=== PATIENT | male | born 1960 | race Two or more races ===

== ENCOUNTER → 2023-12-16 | Outpatient (CLI) | payer BC, SELFPAY ==
[2023-12-16 10:27] LABS: Glucose Estimated Average 280 mg/dL (80-131); Hemoglobin A1C 11.4 % Hgb (4.8-6.0)
== END | disposition home or self-care (01) ==
PROVIDERS: PCP Nurse Practitioner Family; Referring Provider Nurse Practitioner Family; Visit Provider Nurse Practitioner Family
DX: E11.9 Type 2 diabetes mellitus without complications (principal)
CPT/HCPCS: 36415; 83036

== ENCOUNTER → 2024-02-27 | Outpatient (CLI) | payer BC, SELFPAY ==
[2024-02-27 09:07] LABS: Basophils # (Auto) 0.1 Thou/mm3 (0.0-0.2); Basophils % (Auto) 1 % (0-2.5); Eosinophils # (Auto) 0.2 Thou/mm3 (0.0-0.5); Eosinophils % (Auto) 2 % (0-10); Hematocrit 51.8 % (41.0-53.0); Hemoglobin 17.9 g/dL (13.5-16.0); Immature Granulocytes % (Auto) 0 % (0-0); Immature Granulocytes Auto 0.02 Thou/mm3 (0.00-0.00); Lymphocytes # (Auto) 2.6 Thou/mm3 (1.0-4.8); Lymphocytes % (Auto) 35 % (10-50); Mean Corpuscular HGB Conc 34.6 g/dl (31.0-37.0); Mean Corpuscular Volume 90 fL (80-100); Monocytes # (Auto) 0.7 Thou/mm3 (0.0-0.8); Monocytes % (Auto) 9 % (0-12); Neutrophils % (Auto) 53 % (37-80); Nucleated Red Blood Cell % 0 /100 WBC (0); Platelet Count 188 Thou/mm3 (140-440); RDW Standard Deviation 42.5 fL (35.1-43.9); Red Blood Count 5.77 Miln/mm3 (4.50-5.90); White Blood Count 7.6 Thou/mm3 (3.8-10.6)
[2024-02-27 09:19] LABS: Alanine Aminotransferase 28 U/L (10-49); Albumin, Serum 4.4 gm/dL (3.4-4.8); Albumin/Globulin Ratio 1.4 (1.2-2.2); Alkaline Phosphatase 59 U/L (46-116); Anion Gap 7 (7-16); Aspartate Amino Transferase 20 U/L (0-34); BUN/Creatinine Ratio 13 Ratio (12-20); Bilirubin,Total 0.6 mg/dL (0.3-1.2); Blood Urea Nitrogen 13 mg/dL (9-23); Calcium 9.2 mg/dL (8.3-10.6); Calcium (Corrected) 9.2 mg/dL (8.5-10.1); Carbon Dioxide 27.5 mMol/L (20.0-31.0); Chloride 103 mMol/L (98-107); Globulin 3.1 gm/dL (2.3-3.5); Glucose 219 mg/dL (74-106); Osmolality,Calculated 280 (275-295); Potassium 4.3 mMol/L (3.4-5.1); Sodium 137 mMol/L (136-145); Total Protein 7.5 gm/dL (5.7-8.2); eGFR > 60 See Note
[2024-02-27 09:24] LABS: INR 1.1 (0.9-1.3); Partial Thromboplastin Time 26.8 Seconds (22.0-36.0); Prothrombin Time 11.6 Seconds (9.0-12.2)
== END | disposition home or self-care (01) ==
LOC: COPL 08:19
PROVIDERS: PCP Nurse Practitioner Family; Referring Provider Student in an Organized Health Care Education/Training Program; Visit Provider Student in an Organized Health Care Education/Training Program
DX: Z01.818 Encounter for other preprocedural examination (principal); H33.001 Unspecified retinal detachment with retinal break, right eye
CPT/HCPCS: 36415; 80053; 85025; 85610; 85730

== ENCOUNTER → 2024-03-15 | Outpatient (CLI) | payer BC, SELFPAY ==
[2024-03-15 10:46] LABS: Glucose Estimated Average 275 mg/dL (80-131); Hemoglobin A1C 11.2 % Hgb (4.8-6.0)
== END | disposition home or self-care (01) ==
LOC: COPL 09:00
PROVIDERS: PCP Nurse Practitioner Family; Referring Provider Nurse Practitioner Family; Visit Provider Nurse Practitioner Family
DX: E11.9 Type 2 diabetes mellitus without complications (principal)
CPT/HCPCS: 36415; 83036

== ENCOUNTER → 2024-06-17 | Outpatient (CLI) | payer BC, SELFPAY ==
[2024-06-17 08:58] LABS: Glucose Estimated Average 197 mg/dL (80-131); Hemoglobin A1C 8.5 % Hgb (4.8-6.0)
== END | disposition home or self-care (01) ==
LOC: COPL 08:08
PROVIDERS: PCP Nurse Practitioner Family; Referring Provider Nurse Practitioner Family; Visit Provider Nurse Practitioner Family
DX: E03.9 Hypothyroidism, unspecified (principal)
CPT/HCPCS: 36415; 83036

== ENCOUNTER 2024-08-07 07:35 | Emergency (ER) | payer BC, SELFPAY ==
[2024-08-07] VITALS (9 sets, daily range): BP systolic 151–184; BP diastolic 92–102; PULSE 60–85; RESP 16–20; O2SAT 96–99; BMI 34.2
--- NOTE | 2024-08-07 07:50 | PC.NURSE ---
PATIENT ARRIVED ED VIA PRIVATE VEHICLE. PER FAMILY PATIENT WAS UP AT 0500 AND WENT FOR A WALK, DURING THE WALK PATIENT BECAME CONFUSED AND STATES HE HAD TINGLING TO HIS HANDS. UPON ARRIVAL TO ED PATIENT ALERT AND ORIENTED ABLE TO ANSWER QUESTIONS APPROPRIATELY. DR. MARISCAL IN TRIAGE TO ASSESS PATIENT FOR STROKE. STROKE ALERT CALLED AT 0753. PATIENT BS, VITALS OBTAINED. PATIENT TRANSPORTED VIA GURNEY AND TELENEUROLOGY CART. PATIENT ABLE TO FOLLOW COMMANDS DURING EVALUATION BY TELENEUROLOGIST. PATIENT TRNASPORTED BACK TO ROOM AND ASSESSMENT COMPLETED. FAMILY AT BEDSIDE. WILL CONTINUE TO MONITOR.
--- NOTE | 2024-08-07 07:59 | EKG_ITS ---
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
--- NOTE | 2024-08-07 07:59 | XR_ITS ---
Examination: CT brain head without contrast. 2-D sagittal coronal reconstructions Date and time of exam:July 30, 2024 0805 hours INDICATIONS: , Stroke alert Onset focal neurologic deficit this morning. CTDI: vol (mGy):50.7 DLP: (mGycm):1019 Technique: Multiple CT axial sections of the brain have been obtained, 5 mm slice thickness. Contrast has not been administered. 2-D sagittal, coronal reconstructions have been obtained Low dose protocols were performed. One or more of the following dose reduction techniques were used; automated exposure control, adjustment of the mA and/or KV according to patient size, use of iterative reconstruction technique. Findings: No significant ventricular enlargement. Old infarct right basal ganglia Intra-axial or extra-axial hemorrhage density is not seen. No mass effect or midline shift Basal cisterns are not remarkable. Fourth ventricle is midline. Cranial vault intact. Impression: Negative for acute hemorrhage, mass effect or midline shift
--- NOTE | 2024-08-07 07:59 | XR_ITS ---
Examination: CTA carotids with intravenous contrast CTA brain, head with intravenous contrast. 2-D sagittal, coronal reconstructions. 3-D reconstructions. Exam date and time: 25, 0819 hrs. Indications: Stroke alert, onset focal neurologic deficit today CTDI: vol (mGy) 15.5 DLP: (mGycm) 513 Technique: Multiple CTA axial brain, head carotid images post intravenous contrast injection 75 cc, Isovue-370. 2-D sagittal, coronal reconstructions. 3-D reconstructions, 3-D post processing including vascular maximum intensity projection images. Low dose protocols were performed. One or more of the following dose reduction techniques were used; automated exposure control, adjustment of the mA and/or KV according to patient size, use of iterative reconstruction technique. Findings: No significant right common carotid carotid bifurcation or internal carotid artery stenoses Moderate calcification left carotid bifurcation,, 50-60% stenosis origin left internal carotid artery No significant vertebral artery stenoses Intracranial vertebral arteries, basilar artery and posterior cerebral branches do fill Significant calcification juxtasellar portions of the internal carotid arteries No large vessel occlusions involving middle cerebral or anterior cerebral artery branches Impression: 50-60% stenosis origin left internal carotid artery No cerebral large vessel arterial occlusions or thrombus
--- NOTE | 2024-08-07 08:01 | XR_ITS ---
Examinations: MRI Brain without intravenous contrast. MRA brain without intravenous contrast. MRA carotids without intravenous contrast 3-D vascular reconstructions Date and time of exam: August 07, 2024, 1301 hrs. Indications: Stroke alert today, onset focal neurologic deficit Technique: Multiple axial and sagittal images of the brain have been obtained MRA brain carotid images without contrast obtained, including 3-D postprocessing, vascular maximum intensity projection images Findings: Sellaturcica is not enlarged. The optic chiasm and infundibular stalk are not remarkable. Prepontine and interpeduncular cisterns are not enlarged. No localized enlargement of the medulla or chilo. Fourth ventricle and cerebellar tonsils normal in position. Subacute hemorrhage is not seen. Fourth ventricle is midline. Mass in the cerebellopontine angle region is not evident. 7th and 8th nerve complexes exhibits symmetry. Globes are symmetrical with no retro-orbital mass. Increased white matter signal evident, old infarct right and left basal ganglia Diffusion-weighted images demonstrate no focus of restricted diffusion Mass-effect upon the ventricular system is not identified. MRA carotid images degraded by patient motion. MRA brain images diffuse cerebral irregularity without large vessel occlusions Impression: Negative for acute hemorrhage mass effect or midline shift No acute infarct Bilateral old basal ganglia infarcts Moderate diffuse cerebral arterial irregularity
--- NOTE | 2024-08-07 08:36 | PD.EDWEAK ---
ED Weakness RME/HPI General Chief complaint: Dizziness Stated complaint: AMS/DIZZY/WEAK/GOT LOST, LUZW AT 0500 Time Seen by Provider: 08/07/24 07:53 Arrival date/time: 08/07/24 07:35 Limitations: no limitations RME / HPI RME / HPI Narrative: 64 year old male with history of CVA 1 year ago per family, hypertension, diabetes presents to the ED brought in by for evaluation of confusion and altered mental status that began earlier today. Per , the patient usually walks every morning at 5:00 AM. However, this morning, instead of walking, the patient got into his car and drove. At approximately 6:30 AM, the received a call from the patient stating he was lost and unable to find his way home. State the patient has a life alert and were able to track him. states the patient was quiet a ways from home and was found confused. Additionally reports he was sweating at the time. While in the ED, the patient is slow to respond but is answering all questions appropriately. He complains of feeling tremulous, globally weak, and experiencing a headache and abdominal pain. No fevers or chills. Denies any recent changes in speech or any other new complaints. Patient reports he administered his insulin this morning but did not check sugar at home. later adds the patient does drink 1-2 beers daily or every other day. Denies patient drinking last night or this morning. Related Data Home Medications ?Medication ?Instructions ?Recorded ?Confirmed insulin glargine 100 unit/mL (3 unit subcut PRN 08/07/24 mL) subcutaneous pen (Lantus Solostar U-100 Insulin) metformin 500 mg tablet 500 mg PO BID 08/07/24 08/07/24 pioglitazone 30 mg tablet 30 mg PO BID 08/07/24 08/07/24 Previous Rx's ?Medication ?Instructions ?Recorded amlodipine 5 mg tablet 5 mg PO QDAY 30 days #30 tabs 08/07/24 losartan 25 mg tablet 25 mg PO QDAY #30 tabs 08/07/24 Allergies Allergy/AdvReac Type Severity Reaction Status Date / Time No Known Allergies Allergy Verified 08/07/24 07:44 Review of Systems Review of Systems Systems Reviewed: All systems reviewed, normal except as documented Past Medical History Past Medical History CARDIAC: Positive Hypertension; Negative Congestive Heart Failure RESPIRATORY: Negative Respiratory Disorders or Chronic Obstructive Pulmonary Disease (COPD) GENITOURINARY: Negative Renal Disease ENDOCRINE: Positive Diabetes Mellitus Type 2; Negative Diabetes Mellitus Type 1 Social History SMOKING STATUS: Never smoker ED Exam General Limitations: Present no limitations General appearance: Present alert and in no apparent distress Head Head exam: Present atraumatic, normocephalic and normal inspection Eye Eye exam: Present normal appearance, PERRL and EOMI ENT ENT exam: Present normal exam, normal oropharynx and mucous membranes moist Neck Neck exam: Present normal inspection, full ROM and trachea midline Chest Chest inspection: Present normal inspection and symmetric chest wall rise Respiratory Respiratory exam: Present normal lung sounds bilaterally Cardiovascular Cardiovascular exam: Present regular rate, normal rhythm and normal heart sounds Abdominal Exam Abdominal exam: Present soft and normal bowel sounds Extremities Exam Extremities exam: Present normal inspection and full ROM Back Exam Back exam: Present normal inspection and full ROM Neurological Exam Neurological exam: Present alert, oriented X3, CN II-XII intact and other (slow to respond ) Psychiatric Psychiatric exam: Present normal affect and normal mood Skin Skin exam: Present warm, dry, intact and normal color Course Quality Measures none Orders Category Date Time Status Bedside Blood Glucose NOW Care 08/07/24 07:59 Active Nuclear Plant Equipment Operator NOW Care 08/07/24 07:59 Active Continuous Pulse Oximetry NOW Care 08/07/24 07:59 Completed EKG (ED ONLY) *Do not use* NOW Care 08/07/24 07:59 Completed In and Out Catheter NEEDED Care 08/07/24 07:59 Active Insert IV NOW Care 08/07/24 07:59 Active MRI Screening NOW Care 08/07/24 08:01 Active NIH Stroke Scale now Care 08/07/24 07:59 Active NPO NOW Care 08/07/24 07:59 Active Neuro Check Q15MIN Care 08/07/24 08:00 Active Nurse Swallow Screen x1 Care 08/07/24 07:59 Active Consult to Neurology / Tele-Neurology Routine Cons 08/07/24 07:[address] angio stroke protocol Stat Exams 08/07/24 07:[address] stroke protocol Stat Exams 08/07/24 07:59 Completed CXRP [XR chest 1V portable] Stat Exams 08/07/24 11:18 Completed EKG (ED Only) Stat Exams 08/07/24 07:59 Draft MR stroke protocol brain wo con with MRA head and neck Exams 08/07/24 08:01 Completed Stat Alcohol, Blood Medical Stat Lab 08/07/24 08:35 Completed Arterial Blood Gas Stat Lab 08/07/24 14:23 Completed BNP [B-Type Natriuretic Peptide] Stat Lab 08/07/24 11:31 Completed CBC Stat Lab 08/07/24 08:35 Completed Comprehensive Metabolic Panel Stat Lab 08/07/24 08:35 Completed Drug Screen,Urine Stat Lab 08/07/24 09:25 Completed Magnesium Stat Lab 08/07/24 08:35 Completed Partial Thromboplastin Time Stat Lab 08/07/24 08:35 Completed Prothrombin Time with INR Stat Lab 08/07/24 08:35 Completed Troponin I Stat Lab 08/07/24 08:35 Completed Troponin I Stat Lab 08/07/24 11:31 Completed Urinalysis Stat Lab 08/07/24 09:25 Completed Urine Culture Stat Lab 08/07/24 09:25 Received Ondansetron Inj [Zofran Inj] Med 08/07/24 07:59 Active 4 mg IVP Q4HR PRN Sodium Chloride 0.9% 1000 ml [Ns] 1,000 ml Med 08/07/24 08:00 Active IV Q10H hydrALAZINE HCL [Apresoline] Med 08/07/24 14:42 Discontinued 50 mg PO X1 ONE Oxygen Delivery NOW RT 08/07/24 07:59 Active Vital Signs Vital signs: Vital Signs Pulse Rate 72 08/07/24 07:55 Weakness MDM Narrative MDM Narrative:: Lamar Moyer am scribing for and in the presence of Dr. Vasquez. Assessment: Sepsis vs ICH, stroke, and cardiac etiology. However, given the high concern for a potential brain bleed, a CT scan of the head will be obtained first to rule out ICH. The patient does not present with signs of hypoglycemia, hypotension, or hypoxia at this time. Given the patient's presentation, a blood gas will be obtained to assess for potential CO2 retention. On reassessment at 11:22 AM, the patient complains of left sided chest pain beginning this morning. At this time ABG is pending. Will order serial troponin and chest xray. Serial troponin remained unchanged. ABG unremarkable. Chest xray negative for pneumonia. Brain MRI/MRA shows old infarcts, no acute findings. We reviewed all the results, analysis, and treatment plans. Patient is amenable to discharge. Strict return precautions were outlined. Patient was discharged in stable condition. Patient labs came back, Partial Swinging between normal to high Patient is not taking any medication at home for his hypertension His CAT scans came back negative CTA showed 60% stenosis however the MRI showed no evidence of stroke Patient had history of stroke in the past MRI was negative Patient remained normal with his physical findings during his stay in the ER He was given hydralazine for his hypertension There was no evidence of sepsis hypoxia or hypotension No evidence of MRI no evidence of hypoglycemia no evidence of hypoxia Patient was discharged home with a prescription of losartan and amlodipine Patient was discharged in condition with normal neurological examination Patient data External records reviewed:: [facility] previous records (I reviewed ED visit on 07/12/2022 ) Clinical information provided by:: patient and family ( and daughter ) Social determinants that could affect healthcare access:: alcohol use Patient has the following chronic illnesses:: Hx of CVA per family, hypertension, diabetes How is presenting disease/condition affected by chronic disease/condition?: exacerbated by Evaluation data The following diagnostics were reviewed and interpreted by me:: lab results, radiology exam(s) and EKG tracing(s) (08/07/2024 @ 08:49. Sinus rhythm, rate 70, LVH, LAD, no ischemia, left atrial enlargement, normal QT. ) Lab and/or radiology exams considered but not ordered:: None Interpretation Summary: Ordering Physician: Jose Eduardo Aguiar MD Date of Service: 08/07/24 Procedure(s): CT stroke protocol Accession Number(s): [id number] cc: Jose Eduardo Aguiar MD; Justice Correa MD; NO PRIMARY/FAMILY,PHYSICIAN~ Examination: CT brain head without contrast. 2-D sagittal coronal reconstructions Date and time of exam:July 30, 2024 0805 hours INDICATIONS: , Stroke alert Onset focal neurologic deficit this morning. CTDI: vol (mGy):50.7 DLP: (mGycm):1019 Technique: Multiple CT axial sections of the brain have been obtained, 5 mm slice thickness. Contrast has not been administered. 2-D sagittal, coronal reconstructions have been obtained Low dose protocols were performed. One or more of the following dose reduction techniques were used; automated exposure control, adjustment of the mA and/or KV according to patient size, use of iterative reconstruction technique. Findings: No significant ventricular enlargement. Old infarct right basal ganglia Intra-axial or extra-axial hemorrhage density is not seen. No mass effect or midline shift Basal cisterns are not remarkable. Fourth ventricle is midline. Cranial vault intact. Impression: Negative for acute hemorrhage, mass effect or midline shift Dictated By: Justice Correa MD Signed By: <Electronically signed by Justice Correa MD in OV>08/07/24 0810 Ordering Physician: Jose Eduardo Aguiar MD Date of Service: 08/07/24 Procedure(s): CT angio stroke protocol Accession Number(s): [id number] cc: Jose Eduardo Aguiar MD; Justice Correa MD; MARK BUITRAGO Examination: CTA carotids with intravenous contrast CTA brain, head with intravenous contrast. 2-D sagittal, coronal reconstructions. 3-D reconstructions. Exam date and time: 818 hrs. Indications: Stroke alert, onset focal neurologic deficit today CTDI: vol (mGy) 15.5 DLP: (mGycm) 513 Technique: Multiple CTA axial brain, head carotid images post intravenous contrast injection 75 cc, Isovue-370. 2-D sagittal, coronal reconstructions. 3-D reconstructions, 3-D post processing including vascular maximum intensity projection images. Low dose protocols were performed. One or more of the following dose reduction techniques were used; automated exposure control, adjustment of the mA and/or KV according to patient size, use of iterative reconstruction technique. Findings: No significant right common carotid carotid bifurcation or internal carotid artery stenoses Moderate calcification left carotid bifurcation,, 50-60% stenosis origin left internal carotid artery No significant vertebral artery stenoses Intracranial vertebral arteries, basilar artery and posterior cerebral branches do fill Significant calcification juxtasellar portions of the internal carotid arteries No large vessel occlusions involving middle cerebral or anterior cerebral artery branches Impression: 50-60% stenosis origin left internal carotid artery No cerebral large vessel arterial occlusions or thrombus Dictated By: Justice Correa MD Signed By: <Electronically signed by Justice Correa MD in OV>08/07/24 0940 Ordering Physician: Jose Eduardo Aguiar MD Date of Service: 08/07/24 Procedure(s): MR stroke protocol Accession Number(s): [id number] cc: Jose Eduardo Aguiar MD; Justice Correa MD; MARK BUITRAGO ~ Examinations: MRI Brain without intravenous contrast. MRA brain without intravenous contrast. MRA carotids without intravenous contrast 3-D vascular reconstructions Date and time of exam: August 07, 2024, 1301 hrs. Indications: Stroke alert today, onset focal neurologic deficit Technique: Multiple axial and sagittal images of the brain have been obtained MRA brain carotid images without contrast obtained, including 3-D postprocessing, vascular maximum intensity projection images Findings: Sellaturcica is not enlarged. The optic chiasm and infundibular stalk are not remarkable. Prepontine and interpeduncular cisterns are not enlarged. No localized enlargement of the medulla or chilo. Fourth ventricle and cerebellar tonsils normal in position. Subacute hemorrhage is not seen. Fourth ventricle is midline. Mass in the cerebellopontine angle region is not evident. 7th and 8th nerve complexes exhibits symmetry. Globes are symmetrical with no retro-orbital mass. Increased white matter signal evident, old infarct right and left basal ganglia Diffusion-weighted images demonstrate no focus of restricted diffusion Mass-effect upon the ventricular system is not identified. MRA carotid images degraded by patient motion. MRA brain images diffuse cerebral irregularity without large vessel occlusions Impression: Negative for acute hemorrhage mass effect or midline shift No acute infarct Bilateral old basal ganglia infarcts Moderate diffuse cerebral arterial irregularity Dictated By: Justice Correa MD Signed By: <Electronically signed by Justice Correa MD in OV> 08/07/24 1406 Ordering Physician: Jose Eduardo Aguiar MD Date of Service: 08/07/24 Procedure(s): XR chest 1V portable Accession Number(s): [id number] cc: Jose Eduardo Aguiar MD; Justice Correa MD; MARK BUITRAGO Examination: Chest single view Technique one AP portable semiupright chest single view Date and time: August 06, 2024, 1151 hrs. Indications: Altered mental status today Findings: Mild enlargement cardiac contour. No aspiration pneumonia. Moderate osteopenia Impression: Negative for aspiration pneumonia Dictated By: Justice Correa MD Signed By: <Electronically signed by Justice Correa MD in OV> 08/07/24 1411 Medications / Prescriptions Medications or Prescriptions considered but not ordered:: None Medication administrations:: Medication Administration History Sodium Chloride (Ns) 1,000 mls @ 100 mls/hr IV Q10H HENOK Stop: 09/06/24 07:59 Last Admin: 08/07/24 08:46 Dose: 100 mls/hr Documented By: ANDERS Ondansetron HCl (Ondansetron Inj 2 Mg/Ml Inj 2 Ml) 4 mg IVP Q4HR PRN PRN Reason: NAUSEA OR VOMITING Stop: 09/06/24 07:58 Discontinued Medications Hydralazine HCl (Hydralazine Hcl 25 Mg Tablet) 50 mg PO X1 ONE Stop: 08/07/24 14:43 Last Admin: 08/07/24 14:53 Dose: 50 mg Documented By: DB See above Consultations Consultation(s) initiated? (list below): Yes Consultation #1 (Physician, Specialty, Details): I spoke with teleneurologist Dr. Brooks. States patient is not a TNK candidate and symptoms are suggestive of encephalopathy. Time: 08:41 Diagnosis Weakness Differential Diagnosis: acute myocardial infarction, anemia, hypoglycemia, sepsis, dehydration and other (CVA, TIA, metabolic encephalopathy, UTI) Most likely diagnosis given after review of the tests above:: hypertension TGA Elevated troponin Adverse reaction to drug Admission Indicated Admission indicated?: not indicated Admission Request Was there a request for admission?: No Disposition Plan Disposition Plan: Discharge Discharge Attestation Discharge Attestation: The patient and all family members were given an opportunity to ask questions and understood the discharge instructions. Discharge instructions specifically effects, indications for sooner follow up or return to the emergency department, and the expected course of current diagnosis. Patient condition: Stable Critical Care Time Critical Care Time Critical Care Time: Yes Total Critical Care Time (min.): 45 Attestation: The high probability of sudden, clinically significant deterioration in the patient's condition required the highest level of my preparedness to intervene urgently. The services I provided to this patient were to treat and/or prevent clinically significant deterioration. Services included the following: chart data review, reviewing nursing notes and/or old charts, documentation time, remediation consultant collaboration regarding findings and treatment options, medication orders and management, direct patient care, vital sign assessments and ordering, interpreting and reviewing diagnostic studies and lab tests. Aggregate critical care time includes only time during which I was engaged in work directly related to the patient's care, as described above, whether at bedside or elsewhere in the Emergency Department. It did not include time spent performing other reported procedures or the services of residents, students, nurses or physician assistants. Discharge Plan Plan Patient Disposition: HOME (Self Care) Prescriptions/Referrals Prescriptions/Med Rec: New amlodipine 5 mg tablet 5 mg PO QDAY 30 Days Qty: 30 0RF losartan 25 mg tablet 25 mg PO QDAY Qty: 30 1RF No Action pioglitazone 30 mg tablet 30 mg PO BID Patient Comments: TAKE 1 TABLET BY MOUTH ONCE DAILY metformin 500 mg tablet 500 mg PO BID Patient Comments: TAKE 1 TABLET BY MOUTH TWICE DAILY WITH MEALS insulin glargine [Lantus Solostar U-100 Insulin] 100 unit/mL (3 mL) insulin pen SUBCUT PRN Patient Comments: INJECT 60 UNITS SUBCUTANEOUSLY ONCE DAILY Referrals: No Primary/Family,Physician [Referring Provider] - In 1 week Problem List Clinical Impression: Hypertension, TGA (transient global amnesia), Elevated troponin, Adverse reaction to drug Patient/Caregiver Discharge Instructions Education Materials: Controlling High Blood Pressure, Diabetes and Heart Disease, Low-Salt Choices, Your High Blood Pressure Risk Factors, Eating Heart-Healthy Foods, Blood Pressure Check Steps, ED Hypertension, New (Begin Treatment) Additional Instructions: Check blood pressure at home once a day Follow-up with your doctor in 1 week Print Language: Mosotho Stand Alone Forms: Emelia Award Info., Patient Portal Info Letter
[2024-08-07] MEDS: SODIUM CHLORIDE 0.9% 1000 ML 1,000 ML 100 ML IV (08:46)
--- NOTE | 2024-08-07 08:46 | ESCONSULT_ITS ---
Tele Neuro Consultation Consultation Date 08/07/24 Most Recent Vital Signs Last Vital Signs Pulse 72 08/07/24 08:39 Resp 20 08/07/24 08:39 Pulse Ox 98 08/07/24 08:39 Consultation Narrative [facility] Tele[facility]rology Consult [facility] Patient Name:???Tyler Childers Date of :???1960 Identification Number:??? Date of Service:???08/07/2024 07:52:49 Diagnosis:?R26.81 - Unsteady gait ?R20.8 - Other disturbances of skin sensation Impression: ?Acute onset of bilateral hand and foot paresthesias and dizziness/lightheadedness, without focal neurological findings on exam. Clinical presentation with bilateral symptoms is not consistent with acute stroke in the absence of objective neurological findings on exam, therefore IV thrombolysis was not recommended. Differential diagnosis includes near-syncope, metabolic abnormalities, volume depletion, symptoms related to chronic alcohol use. ? ?Recommendations: ?- Metabolic/infectious workup including EtOH level, ammonia, TSH, B12. ?- High dose IV thiamine 500mg q8h x2 days then 250mg daily ?- Orthostatic vital signs ?- Continue ASA ?- Alcohol withdrawal precautions. Our recommendations are outlined below. Recommendations: ? Stroke/Telemetry Floor ? Neuro Checks (Q4) ? Bedside Swallow Eval ? DVT Prophylaxis ? IV Fluids, Normal Saline ? Head of Bed 30 Degrees ? Euglycemia and Avoid Hyperthermia (PRN Acetaminophen) ? Initiate or continue Aspirin 325 MG daily ? Antihypertensives PRN if Blood pressure is greater than 220/120 or there is a concern for End organ damage/contraindications for permissive HTN. If blood pressure is greater than 220/120 give labetalol PO or IV or Vasotec IV with a goal of 15% reduction in BP during the first 24 hours. Sign Out: ? Discussed with Emergency Department Provider Advanced Imaging: Advanced imaging has been ordered. Results pending. Metrics: Last Known Well: 08/07/2024 05:10:00 Dispatch Time: 08/07/2024 07:52:49 Arrival Time: 08/07/2024 07:40:00 Initial Response Time: 08/07/2024 07:55:13Symptoms: altered mental status, dizziness. Initial patient interaction: 08/07/2024 08:06:51 NIHSS Assessment Completed: 08/07/2024 08:16:08Patient is not a candidate for Thrombolytic. Thrombolytic Medical Decision: 08/07/2024 08:16:49Patient was not deemed candidate for Thrombolytic because of following reasons: other diagnosis suspected near syncope, encephalopathy. CT Head: I personally reviewed all the CT images that were available to me and it showed: no acute pathology. Chronic right basal ganglia infarct Primary Provider Notified of Diagnostic Impression and Management Plan on: 08/07/2024 08:39:30 History of Present Illness:Patient is a 64 year old Male. Patient was brought by private transportation with symptoms of altered mental status, dizziness. Patient is a 64 year old man presenting to the ED with family due to confusion and dizziness. He reports that he woke up feeling normal at 5am today. He went immediately outside and was walking for about 3-5 minutes when he developed onset of bilateral hand and foot paresthesias, lightheadedness, and trouble walking due to bilateral legs feeling weak at 5:10am. He denies double vision, visual loss, lateralized weakness/numbness, speech/language difficulty. His family thought he seemed confused and brought him to the ED. No smoking. Daily alcohol use. Past Medical History: ?Hypertension ?Diabetes Mellitus ?Stroke ?There is no history of Atrial Fibrillation ?There is no history of Seizures Medications: No Anticoagulant use? Antiplatelet use:?Yes?aspirin Reviewed EMR for current medications Other Medications Pertinent To Assessment Include: lisinopril Allergies:? NKDA Social History: Smoking: No Alcohol Use: Yes Family History: There is no family history of premature cerebrovascular disease pertinent to this consultation ROS : 14 Points Review of Systems was performed and was negative except mentioned in HPI. Past Surgical History: There Is No Surgical History Contributory To Today?s Visit Examination: BP(147/90),?Pulse(72),?Blood Glucose(134) 1A: Level of Consciousness - Alert; keenly responsive?+ 0 1B: Ask Month and Age - Both Questions Right?+ 0 1C: Blink Eyes & Squeeze Hands - Performs Both Tasks?+ 0 2: Test Horizontal Extraocular Movements - Normal?+ 0 3: Test Visual Love - No Visual Loss?+ 0 4: Test Facial Palsy (Use Grimace if Obtunded) - Normal symmetry?+ 0 5A: Test Left Arm Motor Drift - No Drift for 10 Seconds?+ 0 5B: Test Right Arm Motor Drift - No Drift for 10 Seconds?+ 0 6A: Test Left Leg Motor Drift - No Drift for 5 Seconds?+ 0 6B: Test Right Leg Motor Drift - No Drift for 5 Seconds?+ 0 7: Test Limb Ataxia (FNF/Heel-Ferreira) - No Ataxia?+ 0 8: Test Sensation - Normal; No sensory loss?+ 0 9: Test Language/Aphasia - Normal; No aphasia?+ 0 10: Test Dysarthria - Normal?+ 0 11: Test Extinction/Inattention - No abnormality?+ 0 NIHSS Score:?0 NIHSS Free Text :?impaired attention Pre-Morbid Modified [place] Scale:0 Points = No symptoms at all Spoke with :?Dr. Aguiar This consult was conducted in real time using interactive audio and video technology. Patient was informed of the technology being used for this visit and agreed to proceed. Patient located in hospital and provider located at home/office setting. Patient is being evaluated for possible acute neurologic impairment and high probability of imminent or life-threatening deterioration. I spent total of 50 minutes providing care to this patient, including time for face to face visit via telemedicine, review of medical records, imaging studies and discussion of findings with providers, the patient and/or family. Dr Lorelei Brooks [facility] For Inpatient follow-up with [facility] physician please call [facility] at . As we are not an outpatient service for any post hospital discharge needs please contact the hospital for assistance. If you have any questions for the [facility] physicians or need to reconsult for clinical or diagnostic changes please contact us via [facility] at .
[2024-08-07 08:55] LABS: Basophils % (Auto) 0 % (0-2.5); Eosinophils # (Auto) 0.1 Thou/mm3 (0.0-0.5); Eosinophils % (Auto) 1 % (0-10); Hematocrit 43.1 % (41.0-53.0); Hemoglobin 14.9 g/dL (13.5-16.0); Immature Granulocytes % (Auto) 1 % (0-0); Immature Granulocytes Auto 0.06 Thou/mm3 (0.00-0.00); Lymphocytes # (Auto) 1.1 Thou/mm3 (1.0-4.8); Lymphocytes % (Auto) 11 % (10-50); Mean Corpuscular HGB Conc 34.6 g/dl (31.0-37.0); Mean Corpuscular Hemoglobin 31.5 pg (25.0-35.0); Mean Corpuscular Volume 91 fL (80-100); Monocytes # (Auto) 0.8 Thou/mm3 (0.0-0.8); Monocytes % (Auto) 8 % (0-12); Neutrophils # (Auto) 8.1 Thou/mm3 (1.8-7.7); Neutrophils % (Auto) 80 % (37-80); Nucleated Red Blood Cell % 0 /100 WBC (0); Platelet Count 167 Thou/mm3 (140-440); RDW Standard Deviation 45.3 fL (35.1-43.9); Red Blood Count 4.73 Miln/mm3 (4.50-5.90); White Blood Count 10.1 Thou/mm3 (3.8-10.6)
[2024-08-07 09:11] LABS: INR 1.1 (0.9-1.3); Partial Thromboplastin Time 27.7 Seconds (22.0-36.0); Prothrombin Time 11.9 Seconds (9.0-12.2)
[2024-08-07 09:24] LABS: Alanine Aminotransferase 19 U/L (10-49); Albumin, Serum 3.9 gm/dL (3.4-4.8); Albumin/Globulin Ratio 1.3 (1.2-2.2); Alcohol, Blood Medical < 3.0 mg/dL (0-10.0); Alkaline Phosphatase 44 U/L (46-116); Anion Gap 6 (7-16); Aspartate Amino Transferase 22 U/L (0-34); BUN/Creatinine Ratio 7 Ratio (12-20); Bilirubin,Total 0.4 mg/dL (0.3-1.2); Blood Urea Nitrogen 8 mg/dL (9-23); Calcium 8.9 mg/dL (8.3-10.6); Chloride 106 mMol/L (98-107); Creatinine (Component) 1.1 mg/dL (0.6-1.3); Estimated Creatinine Clearance 78.1 mL/min (>60); Globulin 2.9 gm/dL (2.3-3.5); Glucose 112 mg/dL (74-106); Magnesium 1.9 mg/dL (1.6-2.6); Osmolality,Calculated 273 (275-295); Potassium 3.9 mMol/L (3.4-5.1); Sodium 137 mMol/L (136-145); Total Protein 6.8 gm/dL (5.7-8.2); eGFR > 60 See Note
[2024-08-07 09:41] LABS: Collection Type, Urine Clean Catch
[2024-08-07 10:01] LABS: Bilirubin,Urine Negative (Negative); Blood,Urine Negative (Negative); Clarity,Urine Clear (Clear/Hazy); Color,Urine Lt-Yellow (Lt Yel-Yel); Glucose, Urine Trace (Negative); Ketones,Urine Negative (Negative); Leukocyte Esterase,Urine Negative (Negative); Nitrite,Urine Negative (Negative); Protein,Urine Trace (Neg - Trace); RBC,Urine 1 /hpf (0-3); Specific Gravity,Urine 1.019 (1.001-1.035); Squamous Epithelial Cell,Urine < 1 /hpf (0-5); Urobilinogen,Urine Negative mg/dL (0.0-1.0); WBC,Urine < 1 /hpf (0-5)
[2024-08-07 10:08] LABS: Amphetamine/Methamp Scrn,U Negative (Negative); Barbiturate Screen,Urine Negative (Negative); Benzodiazepines Screen,Urine Negative (Negative); Benzoylecgonine Screen, Ur Negative (Negative); Fentanyl Screen,Urine Negative (Negative); Opiate Screen,Urine Negative (Negative); THC Screen,Urine Negative (Negative)
--- NOTE | 2024-08-07 11:18 | XR_ITS ---
Examination: Chest single view Technique one AP portable semiupright chest single view Date and time: August 06, 2024, 1151 hrs. Indications: Altered mental status today Findings: Mild enlargement cardiac contour. No aspiration pneumonia. Moderate osteopenia Impression: Negative for aspiration pneumonia
[2024-08-07 12:09] LABS: B-Type Natriuretic Peptide 86 pg/mL (0-100)
[2024-08-07 12:23] LABS: Troponin I 0.076 ng/mL (0.0-0.045)
--- NOTE | 2024-08-07 13:11 | PC.NURSE ---
PATIENT TAKEN TO MRI VIA GURNEY.
[2024-08-07 14:28] LABS: Base Excess 0 (-3-3); HCO3 24 mEq/L (20-26); Inspired Oxygen, FIO2 21 %; O2 Saturation 95 % (91-98); PCO2 37 mmHg (32.0-48.0); PO2 69 mmHg (83-108); pH, Arterial 7.42 (7.35-7.45)
[2024-08-07 14:30] LABS: Allen Test Performed/OK; Puncture Site Right Brachial
[2024-08-07] MEDS: hydrALAZINE HCL 25 MG TABLET 50 MG PO (14:53)
== END 2024-08-07 15:59 | disposition home or self-care (01) ==
PROVIDERS: Emergency Provider Emergency Medicine; PCP Nurse Practitioner Family
DX: G45.4 Transient global amnesia (principal); T50.905A Adverse effect of unspecified drugs, medicaments and biological substances, initial encounter; E11.9 Type 2 diabetes mellitus without complications; I65.22 Occlusion and stenosis of left carotid artery; Z86.73 Personal history of transient ischemic attack (TIA), and cerebral infarction without residual deficits; R94.31 Abnormal electrocardiogram [ECG] [EKG]; I11.9 Hypertensive heart disease without heart failure
CPT/HCPCS: 36415; 36600; 70450; 70496; 70498; 70544; 71045; 80053; 80307; 80320; 81001; 82803; 83735; 83880; 84484; 85025; 85610; 85730; 87086; 93005; 99291; A4649; J7030; Q9967; A9270; G0480